=== PATIENT | male | born 1965 | race Caucasian/White ===

== ENCOUNTER 2021-07-29 08:04 | Day surgery (SDC) | payer OTHER ==
[2021-07-26 15:13] VITALS: BMI 29.7
[2021-07-29 09:20] VITALS: TEMP 97.5
[2021-07-29 09:36] VITALS: BP 103/69; PULSE 65
== END 2021-07-29 09:52 | disposition home or self-care (01) ==
LOC: FASU-ENDO 08:04
PROVIDERS: ATTEND Internal Medicine Gastroenterology
PROC: 0DJD8ZZ Inspection of Lower Intestinal Tract, Via Natural or Artificial Opening Endoscopic (ICD-10-PCS; principal; 2021-07-29 08:46)
DX: Z86.010 Personal history of colon polyps (principal); Z80.0 Family history of malignant neoplasm of digestive organs